=== PATIENT | male | born 1975 | race Hispanic/Latino ===

== ENCOUNTER 2025-04-29 10:32 | Emergency (ER) | payer SELFPAY ==
[2025-04-29] VITALS (14 sets, daily range): BP systolic 127–161; BP diastolic 79–113
[2025-04-29 12:23] LABS: Urine Character Slightly Cloudy (Clear)
[2025-04-29 12:35] LABS: Urine Red Blood Cell 0-2 /HPF (0-2); Urine White Cell 0-2 /HPF (0-5)
--- NOTE | 2025-04-29 13:02 | ED.GENMED ---
History of Present Illness
<Rasta Monreal MD, Resident - Last Filed: 04/29/25 13:26>
General
Chief Complaint: Flank Pain
Source: patient
Exam Limitations: none
Time Seen by Provider: 04/29/25 11:10
History of Present Illness
History of Present Illness:
Patient is a 49-year-old male with past medical history of kidney stones about 20 years ago, no primary care physician, started having back pain about 2 months ago intermittently associated with urinary urgency from last 2 to 3 days.
He denies any fever or chills, no burning with urination but he went to urgent care for persistent back pain yesterday
Urinalysis done, revealed microscopic hematuria but no evidence of any infection so he was sent to the ER for further evaluation regarding kidney stones.
He has a remote history of kidney stones about 20 years ago but does not remember the type of stones and also does not remember if it was similar to this presentation
Past History
<Rasta Monreal MD, Resident - Last Filed: 04/29/25 13:26>
Past History
ED Past Medical History: Other (Kidney stones 20 years ago)
ED Past Surgical History: None
Phy Exam
<Rasta Monreal MD, Resident - Last Filed: 04/29/25 13:26>
General Physical Exam
General Presentation: well appearing and no apparent distress
Cardiovascular Exam
Cardiovascular Exam: regular rate/rhythm, no edema, no murmur and normal peripheral pulses
Pulmonary Exam
Pulmonary Exam: lungs clear, no respiratory distress, no rales, no rhonchi and no wheezing
Gastrointestinal Exam
Gastrointestinal Exam: normal bowel sounds, non tender, soft and non distended
Neurological Exam
Neurological Exam: alert, oriented x3 and no motor deficits
Musculoskeletal Exam
Musculoskeletal Exam: back pain (Chandelier sign positive on right side) and back tenderness (Costovertebral tenderness)
Course
<Rasta Monreal MD, Resident - Last Filed: 04/29/25 13:26>
Orders/Labs/Results
Orders:
Orders
04/29/25 11:29
Urinalysis Reflex To Culture Urgent
Date Specimen was Collected: 04/29/25
Time Specimen was Collected: :28
Urine Microscopic Reflex Cult Urgent
04/29/25 13:14
CT Abd/pel Without Iv Or Oral Stat
Comment:
Reason For Exam: Right sided flank pain
04/29/25 13:15
Ketorolac [Toradol] 15 mg IV NOW STA
04/29/25 13:27
BMP [Basic Metabolic Panel] Stat
CBC/With Diff [Complete Blood Count/With Diff] Stat
04/29/25 16:10
Diphenhydramine [Benadryl] 12.5 mg IV NOW STA
Abnormal Lab Results
04/29/25 04/29/25
13:27
WBC 4.6 L 10^3/uL
(4.8-10.8)
RBC 4.28 L 10^6/uL
(4.70-6.10)
Hct 38.7 L %
(39.0-52.0)
MCH 31.8 H pg
(27.0-31.0)
Glucose 100 H mg/dl
(70-99)
Ur Occult Blood Reflex 1+ A
(Negative)
Urine Bacteria (Reflex) Few A
(Negative)
Urine Albumin (Reflex) 1+ A
(Neg - Trace)
04/29/25 13:27
04/29/25 13:27
Vital Signs
Initial and Last Documented VS:
Initial Vital Signs
Temp Pulse Resp BP Pulse Ox
99 F 101 20 161/113 100
04/29/25 10:40 04/29/25 10:40 04/29/25 10:40 04/29/25 10:40 04/29/25 10:40
Last Documented Vital Signs
Temp Pulse Resp BP Pulse Ox
98.4 F 71 14 143/81 98
04/29/25 19:36 04/29/25 19:36 04/29/25 19:36 04/29/25 19:33 04/29/25 19:36
<Shahab Hercules MD - Last Filed: 04/29/25 16:15>
Orders/Labs/Results
Orders:
Orders
04/29/25 11:29
Urinalysis Reflex To Culture Urgent
Date Specimen was Collected: 04/29/25
Time Specimen was Collected: :28
Urine Microscopic Reflex Cult Urgent
04/29/25 13:14
CT Abd/pel Without Iv Or Oral Stat
Comment:
Reason For Exam: Right sided flank pain
04/29/25 13:15
Ketorolac [Toradol] 15 mg IV NOW STA
04/29/25 13:27
BMP [Basic Metabolic Panel] Stat
CBC/With Diff [Complete Blood Count/With Diff] Stat
04/29/25 16:10
Diphenhydramine [Benadryl] 12.5 mg IV NOW STA
Abnormal Lab Results
04/29/25 04/29/25
13:27
WBC 4.6 L 10^3/uL
(4.8-10.8)
RBC 4.28 L 10^6/uL
(4.70-6.10)
Hct 38.7 L %
(39.0-52.0)
MCH 31.8 H pg
(27.0-31.0)
Glucose 100 H mg/dl
(70-99)
Ur Occult Blood Reflex 1+ A
(Negative)
Urine Bacteria (Reflex) Few A
(Negative)
Urine Albumin (Reflex) 1+ A
(Neg - Trace)
04/29/25 13:27
04/29/25 13:27
Vital Signs
Initial and Last Documented VS:
Initial Vital Signs
Temp Pulse Resp BP Pulse Ox
99 F 101 20 161/113 100
04/29/25 10:40 04/29/25 10:40 04/29/25 10:40 04/29/25 10:40 04/29/25 10:40
Last Documented Vital Signs
Temp Pulse Resp BP Pulse Ox
98.4 F 71 14 143/81 98
04/29/25 19:36 04/29/25 19:36 04/29/25 19:36 04/29/25 19:33 04/29/25 19:36
<Kiara Duarte MD - Last Filed: 04/29/25 19:56>
Orders/Labs/Results
Orders:
Orders
04/29/25 11:29
Urinalysis Reflex To Culture Urgent
Date Specimen was Collected: 04/29/25
Time Specimen was Collected: :28
Urine Microscopic Reflex Cult Urgent
04/29/25 13:14
CT Abd/pel Without Iv Or Oral Stat
Comment:
Reason For Exam: Right sided flank pain
04/29/25 13:15
Ketorolac [Toradol] 15 mg IV NOW STA
04/29/25 13:27
BMP [Basic Metabolic Panel] Stat
CBC/With Diff [Complete Blood Count/With Diff] Stat
04/29/25 16:10
Diphenhydramine [Benadryl] 12.5 mg IV NOW STA
Abnormal Lab Results
04/29/25 04/29/25
11:29 13:27
WBC 4.6 L 10^3/uL
(4.8-10.8)
RBC 4.28 L 10^6/uL
(4.70-6.10)
Hct 38.7 L %
(39.0-52.0)
MCH 31.8 H pg
(27.0-31.0)
Glucose 100 H mg/dl
(70-99)
Ur Occult Blood Reflex 1+ A
(Negative)
Urine Bacteria (Reflex) Few A
(Negative)
Urine Albumin (Reflex) 1+ A
(Neg - Trace)
04/29/25 13:27
04/29/25 13:27
Vital Signs
Initial and Last Documented VS:
Initial Vital Signs
Temp Pulse Resp BP Pulse Ox
99 F 101 20 161/113 100
04/29/25 10:40 04/29/25 10:40 04/29/25 10:40 04/29/25 10:40 04/29/25 10:40
Last Documented Vital Signs
Temp Pulse Resp BP Pulse Ox
98.4 F 71 14 143/81 98
04/29/25 19:36 04/29/25 19:36 04/29/25 19:36 04/29/25 19:33 04/29/25 19:36
<Rasta Monreal MD, Resident - Last Filed: 04/29/25 13:26>
MDM/Problems Addressed
Differential Diagnosis Includes:
Pyelonephritis
Nephrolithiasis
Microscopic hematuria
UTI
hypertension
MDM/Problems Addressed:
Check CBC and BMP for electrolyte derangements and leukocytosis check CT abdomen/pelvis without IV contrast to look for pyelonephritis and kidney stone
urine analysis negative for any infection
No history of high blood pressure, most likely secondary to pain, treat pain and recheck vitals
<Rasta Monreal MD, Resident - Last Filed: 04/29/25 13:26>
*Pulse Oximetry
SaO2: 99
Oxygen Mode of Delivery: Room air
Patient hypoxic: no
*Critical Care Note
Total Time (30-74mins, 75-104mins- exclusive of procedures): Not Applicable
<Kiara Duarte MD - Last Filed: 04/29/25 19:56>
*Radiology
Radiology exam reviewed: radiology read reviewed
<Kiara Duarte MD - Last Filed: 04/29/25 19:56>
Update Note
Update Note:
7:00 PM CAT scan shows bladder wall thickening without any sign of kidney stone. Patient appears extremely well and comfortable. Given that patient had blood in his urine and has findings of cystitis on CT, patient will be given antibiotic for
possible UTI.
ED Attending Note
<Rasta Monreal MD, Resident - Last Filed: 04/29/25 13:26>
-
Portions of this chart may have been created with voice recognition software.� Occasional wrong word or��sound alike� substitutions may have occurred due to the inherent limitations of voice recognition software.
<Shahab Hercules MD - Last Filed: 04/29/25 16:15>
ED Attending Note
Patient seen and examined by attending physician: Yes
ED Attending Note:
Patient presents to ED secondary to intermittent right flank/mid back pain over the past 2 months. Over the past 2 to 3 days, however, he started to experience urinary urgency and frequency. Patient was evaluated urgent care center today where his
urinalysis revealed hematuria, and subsequent referred to ED for an evaluation. Patient does report history of kidney stones 20 years ago. However, patient does not recall exact symptoms he had at that time. Denies fever or chills. Denies
trauma. Denies nausea or vomiting. Denies inability to urinate. Denies recent illness. Denies recent change activities.
Physical Exam
General: no apparent distress, not acutely ill. afebrile
Head: nc/at. eomi
Neck: supple. normal range of motion.
Heart: s1/s2 regular rate and rhythm
Lungs: no acute respiratory distress. clear bilaterally. chest wall nontender to palpation
Abdomen: normal bowel sounds. not tender.
Neuro: alert and oriented x 3. no focal neurological deficits
Skin: no rash
Psychiatric: well kept. interactive and cooperative
Extremities: no edema. no calf tenderness.
Patient reports resolution of symptoms, after treatment with Toradol. Awaiting CT abdomen pelvis to evaluate for kidney stone.
Discharge Plan
Departure
Referrals:
NONE,* [Family Provider, Internal Medicine]
Interventions
Interventions:
*Risk Screen - Suicide Last Done: 04/29/25 10:40
*General Assessment Last Done: 04/29/25 10:40
*Neglect/Abuse Screening Last Done: 04/29/25 10:40
*ED COVID-19 Vaccine History Last Done: 04/29/25 11:26
*ED Influenza Vaccine History Last Done: 04/29/25 11:26
KQ-Qohbbz-Chtmleymmc Assessment Last Done: 04/29/25 19:38
ED-Male Genitourinary Assessment Last Done: 04/29/25 19:38
Discharge Date and Time
Print Language: SRI LANKAN
[2025-04-29] MEDS: TORADOL 15 MG IV (13:26)
[2025-04-29 13:39] LABS: Hematocrit 38.7 % (39.0-52.0); Hemoglobin 13.6 g/dL (13.0-18.0); Mean Corp Hgb Conc. 35.1 g/dL (33.0-37.0); Mean Corpuscular Volume 90.4 fL (80.0-94.0); Nucleated Red Blood Cells % 0 % (-); Platelet Count 283 10^3/uL (130-400); Red Cell Dist. Width 11.7 % (11.5-14.5)
[2025-04-29 13:52] LABS: Blood Urea Nitrogen 16 mg/dl (9-20); Calcium 9.1 mg/dl (8.4-10.2); Carbon Dioxide 29 mmol/L (22-30); Chloride 104 mmol/L (98-107); Glucose 100 mg/dl (70-99); Potassium 4.2 mmol/L (3.5-5.1); Sodium 138 mmol/L (135-145); eGFR > 60.00
[2025-04-29] MEDS: BENADRYL 12.5 MG IV (16:56)
[2025-04-29] MEDS: LEVAQUIN 500 MG PO (20:32)
== END 2025-04-29 20:48 | disposition home or self-care (01) ==
LOC: EMR 10:32
PROVIDERS: EMERGENCY PHYSICIAN Emergency Medicine
DX: N39.0 Urinary tract infection, site not specified (principal); Z87.442 Personal history of urinary calculi
CPT/HCPCS: 99284; 96374; 96375; 74176; 80048; 81003; 81015; 85025